=== PATIENT | male | born 1990 | race Caucasian/White ===

== ENCOUNTER 2017-07-27 16:18 | Observation (INO) | payer OTHER ==
[2017-07-27] MEDS ORDERED: Dextrose 5%-Lr IV Solution 1000 ML 1,000 ML IV SCH (16:30)
[2017-07-27] MEDS ORDERED: Sodium Chloride 0.9% 1000 ML 1,000 ML IV STA (16:36)
[2017-07-27 16:38] LABS: VBG BASE EXCESS -0.9 (-2.0-2.0); VBG CARBOXYHEMOGLOBIN 2.4 % T HGB (0.0-6.9); VBG HCO3- 24.9 meq/L (22-28); VBG HEMOGLOBIN 16.8; VBG O2 SATURATION 86.3 (95-100); VBG POTASSIUM 3.4 (3.5-5.1); VBG pH 7.36 (7.32-7.42)
--- NOTE | 2017-07-27 16:38 | XRAY ---
Indication: Overdose. Comparison: None Portable chest demonstrates normal heart, lungs, and bony thorax with multiple overlying monitoring leads.
--- NOTE | 2017-07-27 16:41 | ERPHSYRPT ---
- History of Present Illness Time Seen by Provider: 07/27/17 16:19 Source: patient, EMS (gave 2mg IV narcan [employer] with pt awakening) Physician History: CC: overdose Hx: 26 y/o patient released from detention today. He took 2 norco and 1 30mg oxycontin. He was found in the car blue. EMS was called and gave narcan 2mg IV and he awoke. He has been cooperative. No vomiting. No other complaints. He denies illness. Has been in detention over 2 weeks. Denies suicide ideation or thoughts of self harm. Timing/Duration: today Allergies/Adverse Reactions: No Known Drug Allergies Allergy (Unverified 03/20/16 22:04) Home Medications: No Home Meds [No Home Meds] 1 ea MC UD 03/20/16 [History] Hx Tetanus, Diphtheria Vaccination/Date Given: (unknown) Hx Influenza Vaccination/Date Given: No Hx Pneumococcal Vaccination/Date Given: No - Review of Systems Constitutional: No Fever, No Chills Eyes: No Symptoms Ears, Nose, & Throat: No Symptoms Respiratory: No Cough, No Dyspnea Cardiac: Syncope (passed out in car), No Chest Pain Abdominal/Gastrointestinal: No Abdominal Pain Skin: No Rash Neurological: No Focal Weakness, No Headache, No Parasthesia Psychological: No Suicidal Ideations All Other Systems: Reviewed and Negative - Past Medical History Pertinent Past Medical History: Yes Psycho-Social History: Bipolar, Depression - Past Surgical History Past Surgical History: Yes Musculoskeletal: Orthopedic Surgery Other Surgical History: rt hand surgery - Social History Smoking Status: Current some day smoker How long have you smoked: 4 yrs Exposure to second hand smoke: Yes Drug Use: marijuana Patient Lives Alone: Yes Significant Family History: no pertinent family hx - Nursing Vital Signs Nursing Vital Signs: Initial Vital Signs Temperature 98 F 07/27/17 16:22 Pulse Rate 122 H 07/27/17 16:22 Respiratory Rate 18 07/27/17 16:22 Blood Pressure 164/119 07/27/17 16:22 O2 Sat by Pulse Oximetry 100 07/27/17 16:22 Pain Scale Pain Intensity 0 - Physical Exam General Appearance: alert, other (cooperative) Ears, Nose, Throat Exam: normal ENT inspection, moist mucous membranes Neck Exam: normal inspection, non-tender, supple Respiratory Exam: normal breath sounds, lungs clear Cardiovascular Exam: regular rate/rhythm, tachycardia, No murmur Gastrointestinal/Abdomen Exam: soft, No tenderness, No distention Male Genitalia Exam: normal genitalia Back Exam: normal inspection, normal range of motion Extremity Exam: normal inspection, normal range of motion Neurologic Exam: alert, oriented x 3, cooperative, wire drawer II-XII nml as tested, sensation nml, No motor deficits Skin Exam: warm, dry, No rash SpO2 Interpretation: normal SpO2: 99 Oxygen Delivery: Room Air - Course Nursing assessment & vital signs reviewed: Yes EKG Interpreted by Me: RATE (123), Sinus Tach, NORMAL AXIS, NORMAL INTERVALS ( QTc 448), NORMAL QRS, NORMAL ST-T - Radiology Exams cxr X-ray Interpretation: Teleradiologist Report, Negative Ordered Tests: Active Orders 24 hr Category Date Time Status CO2 Monitoring STAT Care 07/27/17 16:20 Active Veterinary Technician STAT Care 07/27/17 16:19 Active Clean Catch Urine Specimen STAT Care 07/27/17 16:19 Active EKG-ER Only STAT Care 07/27/17 16:19 Active IV Insertion STAT Care 07/27/17 16:19 Active NPO (ED) STAT Care 07/27/17 16:19 Active Pulse Oximetry (ED) STAT Care 07/27/17 16:19 Active CHEST 1 VIEW (PORTABLE) Stat Exams 07/27/17 16:19 Completed ACETAMINOPHEN Stat Lab 07/27/17 16:32 Completed CBC W DIFF Stat Lab 07/27/17 16:32 Completed CMP Stat Lab 07/27/17 16:32 Completed ETHYL ALCOHOL Stat Lab 07/27/17 16:32 Completed Manual Differential NC Stat Lab 07/27/17 16:32 Completed SALICYLATE Stat Lab 07/27/17 16:32 Completed UA W/ MICROSCOPIC Stat Lab 07/27/17 17:10 Completed Urine Triage Profile Stat Lab 07/27/17 17:10 Completed VENOUS BLOOD GAS Stat Lab 07/27/17 16:30 Completed Medication Summary Generic Name Dose Route Start Last Admin Trade Name Freq PRN Reason Stop Dose Admin Dextrose/Lactated Ringer's 1,000 mls @ 100 mls/hr 07/27/17 16:30 Dextrose 5%-Lr Iv Solution 1000 Ml IV 08/26/17 16:29 .Q10H MARCOS Discontinued Medications Generic Name Dose Route Start Last Admin Trade Name Freq PRN Reason Stop Dose Admin Sodium Chloride 1,000 mls @ 999 mls/hr 07/27/17 16:36 07/27/17 16:45 Sodium Chloride 0.9% 1000 Ml IV 07/27/17 17:36 999 mls/hr .Q1H1M STA Administration Sodium Chloride Confirm 07/27/17 16:44 Sodium Chloride 0.9% 1000 Ml Administered 07/27/17 16:45 Dose 1,000 mls @ ud .ROUTE .STK-MED ONE Lab/Rad Data: Laboratory Result Diagrams 07/27/17 16:32 07/27/17 16:32 Laboratory Results 07/27/17 07/27/17 07/27/17 Range/Units 17:10 17:10 16:32 WBC (4.0-10.5) K/mm3 RBC (4.1-5.6) M/mm3 Hgb (12.5-18.0) gm/dl Hct (42-50) % MCV (78-100) fl MCH (26-32) pg MCHC (32-36) g/dl RDW (11.5-14.0) % Plt Count (150-450) K/mm3 MPV (6-9.5) fl VBG pH (7.32-7.42) VBG pCO2 at Pat Temp (42-55) mm/Hg VBG pO2 at Pat Temp (25-40) mm/Hg VBG HCO3 (22-28) meq/L VBG O2 Sat (Litzy) (95-100) VBG Base Excess (-2.0-2.0) VBG Hemoglobin VBG Carboxyhemoglobin (0.0-6.9) % T HGB POC Potassium (3.5-5.1) Sodium 138 (136-145) mEq/L Potassium 3.2 L (3.5-5.1) mEq/L Chloride 100 (98-107) mEq/L Carbon Dioxide 25.0 (21-32) mEq/L Anion Gap 16.3 H (5-15) MEQ/L BUN 6 L (9-20) mg/dL Creatinine 1.23 (0.55-1.30) mg/dl Estimated GFR > 60 ML/MIN Glucose 212 H (70-110) MG/DL Calcium 9.2 (8.5-10.1) mg/dL Total Bilirubin 0.60 (0.2-1.0) mg/dL AST 15 (15-37) U/L ALT 24 (12-78) U/L Alkaline Phosphatase 57 (46-116) U/L Serum Total Protein 8.2 (6.4-8.2) gm/dL Albumin 4.8 (3.4-5.0) g/dL Ur Collection Type CCMS Urine Color YELLOW (YELLOW) Urine Appearance CLEAR (CLEAR) Urine pH 6.0 (5-6) Ur Specific [place] 1.010 (1.005-1.025) Urine Protein TRACE (Negative) Urine Ketones NEGATIVE (NEGATIVE) Urine Blood NEGATIVE (0-5) Yayo/ul Urine Nitrite NEGATIVE (NEGATIVE) Urine Bilirubin NEGATIVE (NEGATIVE) Urine Urobilinogen NORMAL (0-1) mg/dL Ur Leukocyte Esterase NEGATIVE (NEGATIVE) Urine Microscopic WBC 0-2 (0-5) /HPF Urine Mucus SLIGHT (NEGATIVE) /HPF Urine Culture Reflexed NO (NO) Urine Glucose NEGATIVE (NEGATIVE) mg/dL Salicylates < 2.8 L (2.8-20.0) mg/dl Urine Opiates Level NEG. (NEGATIVE) Ur Methadone NEG. (NEGATIVE) Acetaminophen < 2.0 L (10-30) ug/ml Urine Barbiturates NEG. (NEGATIVE) Ur Phencyclidine (PCP) NEG. (NEGATIVE) Urine Amphetamine POS. (NEGATIVE) U Benzodiazepine Level NEG. (NEGATIVE) Urine Cocaine NEG. (NEGATIVE) Urine Marijuana (THC) NEG. (NEGATIVE) Ethyl Alcohol < 0.010 (0.00-0.01) % Specimen Received 07-27-17 [id number] 07/27/17 07/27/17 Range/Units 16:32 16:30 WBC 17.1 H (4.0-10.5) K/mm3 RBC 5.20 (4.1-5.6) M/mm3 Hgb 15.7 (12.5-18.0) gm/dl Hct 46.2 (42-50) % MCV 88.8 (78-100) fl MCH 30.2 (26-32) pg MCHC 34.0 (32-36) g/dl RDW 12.3 (11.5-14.0) % Plt Count 344 (150-450) K/mm3 MPV 10.1 H (6-9.5) fl VBG pH 7.36 (7.32-7.42) VBG pCO2 at Pat Temp 44 (42-55) mm/Hg VBG pO2 at Pat Temp 45 H (25-40) mm/Hg VBG HCO3 24.9 (22-28) meq/L VBG O2 Sat (Litzy) 86.3 L (95-100) VBG Base Excess -0.9 (-2.0-2.0) VBG Hemoglobin 16.8 VBG Carboxyhemoglobin 2.4 (0.0-6.9) % T HGB POC Potassium 3.4 L (3.5-5.1) Sodium (136-145) mEq/L Potassium (3.5-5.1) mEq/L Chloride (98-107) mEq/L Carbon Dioxide (21-32) mEq/L Anion Gap (5-15) MEQ/L BUN (9-20) mg/dL Creatinine (0.55-1.30) mg/dl Estimated GFR ML/MIN Glucose (70-110) MG/DL Calcium (8.5-10.1) mg/dL Total Bilirubin (0.2-1.0) mg/dL AST (15-37) U/L ALT (12-78) U/L Alkaline Phosphatase (46-116) U/L Serum Total Protein (6.4-8.2) gm/dL Albumin (3.4-5.0) g/dL Ur Collection Type Urine Color (YELLOW) Urine Appearance (CLEAR) Urine pH (5-6) Ur Specific [place] (1.005-1.025) Urine Protein (Negative) Urine Ketones (NEGATIVE) Urine Blood (0-5) Yayo/ul Urine Nitrite (NEGATIVE) Urine Bilirubin (NEGATIVE) Urine Urobilinogen (0-1) mg/dL Ur Leukocyte Esterase (NEGATIVE) Urine Microscopic WBC (0-5) /HPF Urine Mucus (NEGATIVE) /HPF Urine Culture Reflexed (NO) Urine Glucose (NEGATIVE) mg/dL Salicylates (2.8-20.0) mg/dl Urine Opiates Level (NEGATIVE) Ur Methadone (NEGATIVE) Acetaminophen (10-30) ug/ml Urine Barbiturates (NEGATIVE) Ur Phencyclidine (PCP) (NEGATIVE) Urine Amphetamine (NEGATIVE) U Benzodiazepine Level (NEGATIVE) Urine Cocaine (NEGATIVE) Urine Marijuana (THC) (NEGATIVE) Ethyl Alcohol (0.00-0.01) % Specimen Received - Progress Progress Note: 07/27/17 17:54 Pt stable but tachycardia persists. UDS positive for amph. He snorted the opioids. He agrees for observation. Called Dr Grant (oc) who will place in obs. Discussed with : Rudy Will see patient in: hospital (observation) Counseled pt/family regarding: lab results, diagnosis, need for follow-up - Departure Time of Disposition: 17:56 Departure Disposition: Observation (ICU Dr Grant (oc)) Clinical Impression: Polysubstance overdose Condition: Fair Critical Care Time: No Referrals: DOCTOR,NO FAMILY [Primary Care Provider] -
[2017-07-27] MEDS ORDERED: Sodium Chloride 0.9% 1000 ML 1,000 ML ONE (16:44)
[2017-07-27 17:24] LABS: Hematocrit 46.2 % (42-50); Hemoglobin 15.7 gm/dl (12.5-18.0); Mean Cell Volume 88.8 fl (78-100); Mean Corpuscular Hemoglobin 30.2 pg (26-32); Mean Platelet Volume 10.1 fl (6-9.5); Platelet Count 344 K/mm3 (150-450); Red Cell Distribution Width 12.3 % (11.5-14.0); White Blood Count 17.1 K/mm3 (4.0-10.5)
[2017-07-27 17:31] LABS: Appearance CLEAR (CLEAR); Bilirubin NEGATIVE (NEGATIVE); Blood NEGATIVE Ery/ul (0-5); Glucose NEGATIVE (NEGATIVE); Ketones NEGATIVE (NEGATIVE); Leukocyte Esterase NEGATIVE (NEGATIVE); Nitrite NEGATIVE (NEGATIVE); Protein,Urine Dip TRACE (Negative); Urobilinogen NORMAL mg/dL (0-1)
[2017-07-27 17:33] LABS: Mucus SLIGHT /HPF (NEGATIVE); WBC 0-2 /HPF (0-5)
[2017-07-27 17:40] LABS: Amphetamine,Urine POS. (NEGATIVE); Barbiturate,Urine NEG. (NEGATIVE); Benzodiazepine,Urine NEG. (NEGATIVE); Cocaine,Urine NEG. (NEGATIVE); Methadone,Urine NEG. (NEGATIVE); Opiate,Urine NEG. (NEGATIVE); PCP,Urine NEG. (NEGATIVE); THC,Urine NEG. (NEGATIVE)
[2017-07-27 17:40] LABS: ALBUMIN 4.8 g/dL (3.4-5.0); ALKALINE PHOSPHATASE 57 U/L (46-116); ANION GAP 16.3 MEQ/L (5-15); BLOOD UREA NITROGEN 6 mg/dL (9-20); CHLORIDE 100 mEq/L (98-107); Calcium 9.2 mg/dL (8.5-10.1); Creatinine 1 1.23 mg/dl (0.55-1.30); EST GLOMERULAR FILTRATION RATE > 60 ML/MIN; Glucose 212 MG/DL (70-110); Potassium 3.2 mEq/L (3.5-5.1); SALICYLATE < 2.8 mg/dl (2.8-20.0); SGOT/AST 15 U/L (15-37); SGPT/ALT 24 U/L (12-78); SODIUM 138 mEq/L (136-145); Total Protein 8.2 gm/dL (6.4-8.2)
[2017-07-27 17:41] LABS: ACETAMINOPHEN < 2.0 ug/ml (10-30)
[2017-07-27 17:42] LABS: ETHYL ALCOHOL < 0.010 % (0.00-0.01)
[2017-07-27 17:53] LABS: Lymphocytes 13 % (24-44); Monocyte 4 % (0.0-12.0); Neutrophils 83 % (36.-66.); Total Cells Counted 100
[2017-07-27 17:57] LABS: Platelet Estimate NORMAL (NORMAL)
[2017-07-27] MEDS: Dextrose 5%-Lr IV Solution 1000 ML 1,000 ML IV SCH (18:39)
[2017-07-27] MEDS ORDERED: Klor Con 10 MEQ PO ONE (20:27)
[2017-07-27 20:42] LABS: VBG BASE EXCESS 2.4 (-2.0-2.0); VBG CARBOXYHEMOGLOBIN 2.9 % T HGB (0.0-6.9); VBG HCO3- 27.9 meq/L (22-28); VBG HEMOGLOBIN 15.3; VBG O2 SATURATION 76.7 (95-100); VBG POTASSIUM 3.5 (3.5-5.1); VBG pH 7.4 (7.32-7.42)
[2017-07-28] MEDS: Dextrose 5%-Lr IV Solution 1000 ML 1,000 ML IV SCH (04:03)
[2017-07-28 05:51] LABS: BASOPHIL % 0.4 % (0.0-0.4); Basophil (Absolute #) 0.04 (0-0.4); Eosinophil % 1.4 % (0.00-5.0); Eosinophil (Absolute #) 0.15 (0-0.5); Granulocyte Absolute (ANC) 6.56 (1.4-6.9); Granulocytes % 60.5 % (36.0-66.0); Hematocrit 41.5 % (42-50); Hemoglobin 13.7 gm/dl (12.5-18.0); Lymphocyte (Absolute #) 2.96 (1.0-4.6); Lymphocytes % 27.4 % (24.0-44.0); Mean Cell Volume 91.4 fl (78-100); Mean Corpuscular Hemoglobin 30.2 pg (26-32); Mean Platelet Volume 10.2 fl (6-9.5); Monocyte (Absolute #) 1.11 (0.0-1.3); Monocytes % 10.3 % (0.0-12.0); Platelet Count 266 K/mm3 (150-450); Red Blood Count 4.54 M/mm3 (4.1-5.6); Red Cell Distribution Width 12.3 % (11.5-14.0); White Blood Count 10.8 K/mm3 (4.0-10.5)
[2017-07-28 06:17] LABS: ANION GAP 9.1 MEQ/L (5-15); BLOOD UREA NITROGEN 5 mg/dL (9-20); CHLORIDE 106 mEq/L (98-107); Calcium 8.7 mg/dL (8.5-10.1); Carbon Dioxide 30.1 mEq/L (21-32); Creatinine 1 0.97 mg/dl (0.55-1.30); EST GLOMERULAR FILTRATION RATE > 60 ML/MIN; Glucose 92 MG/DL (70-110); Potassium 4.8 mEq/L (3.5-5.1); SODIUM 140 mEq/L (136-145)
[2017-07-28 08:42] VITALS: BP 122/95; PULSE 75; O2SAT 100
--- NOTE | 2017-07-28 08:42 | PCM.DCORD ---
- Discharge Discharge Date: 07/28/17 Disposition: Home, Self-Care Condition: Fair Prescriptions: No Action No Home Meds [No Home Meds] 1 mick STILL UD Follow up with: GABRIELLE GALARZA [ACTIVE STAFF] - 1 Week
--- NOTE | 2017-07-28 15:12 | SSS ---
HISTORY OF PRESENT ILLNESS: This is a 26 year-old patient without family physician who was brought to the emergency department by EMS. This morning his girlfriend, Julia, is at the bedside. She reports that he was in the car with her at the [address] and took a 30 mg oxycodone and 2 [place]. She said she noticed that his face was white and his lips were blue and he was not coherent so she called 911. When asked she reported his arms and legs were shaky for 30 seconds after his lips started looking blue. He does not have a history of seizure problems. He remembers waking up in the ambulance. He denies any problems overnight. He reports that he was not trying to hurt himself. He reports that he had had problems with drugs in the past but was able to get clean in the past on his own. He reports that he plans to quit using drugs. The emergency room doctor reports that the EMS gave him 2 mg Narcan IV and he woke after getting this. REVIEW OF SYSTEMS: He denies chest pain. No dyspnea. No abdominal pain. No fever. No rashes. No headache. PAST MEDICAL HISTORY: Illicit drug use. PAST SURGICAL HISTORY: Right hand surgery after his hand was shattered when it was shut in a tailgate. SOCIAL HISTORY: He lives with his sister, sister's and their kids. He reports he quit drinking alcohol. The emergency room reports that he was recently released from alf. He denies smoking but does have chew in a bottle next to him. He denies meth or THC. He is currently unemployed. FAMILY HISTORY: His mother is living and no problems. His father is and had history of heart and lung problems but the patient is not sure about the specifics PHYSICAL EXAMINATION: VITAL SIGNS: Temperature current 98.1F, temperature max 98.1F, heart rate 75 to 122 currently 84, respiratory rate 12 to 19 currently 18, blood pressure 136 to 164 over 63 to 119 currently 131/63. Oxygen saturation 97 to 100% on room air. GENERAL: The patient is sitting in bed, alert, talkative and in no acute distress. His girlfriend, Julia, is at the bedside. HEENT: Mouth - He has poor dentition. No erythema. He has his tonsils. Pupils equal, round and reactive to light. CVS: Heart has a regular rate and rhythm. No murmurs, gallops or rubs are appreciated. CHEST: Clear to auscultation bilaterally. No crackles or wheezes. ABDOMEN: Soft, nontender, nondistended with normal bowel sounds. EXTREMITIES: No clubbing, cyanosis or edema. SKIN: Warm, dry and intact with tattoos. LABORATORY DATA AND TESTS: His white blood cell count on admission was 17,1000 and repeat was 10,800 this morning. Potassium was 3.2 on admission, 4.8 today. Glucose 212 on admission and 92 today. UA was negative. Urine tox was positive for amphetamines. Acetaminophen level was less than 2 and repeat after 2 hours was less than 2. Salicylate less than 2.8. Ethanol alcohol less than 0.010. Chest x-ray was read as normal with multiple overlying monitoring leads. ASSESSMENT AND PLAN: 1) POLYSUBSTANCE OVERDOSE: The patient denies suicidal ideation. He was offered consultation with [facility] but declined. The patient states that he wants to quit using illicit drugs and prescription drugs that are not his own. The patient was given names and phone numbers for physicians authorized to treat opioid dependency with bupropion in [place]. The patient was encouraged by myself that it does help for treatment and we do not want something bad to happen to him but we are available if he needs us. 2) HYPOKALEMIA: This resolved with potassium and IV fluids overnight. DISPOSITION: The patient was discharged to home in fair condition. FOLLOW UP: He may follow up with myself in one week if he describes and he was given the names and phone numbers of prescribers that treat opioid dependency in [place].
== END 2017-07-28 09:20 | disposition home or self-care (01) ==
LOC: ED 16:18 → ICU 18:17
PROVIDERS: ADMIT Internal Medicine; ATTEND Internal Medicine
DX: F19.10 Other psychoactive substance abuse, uncomplicated (principal); G40.909 Epilepsy, unspecified, not intractable, without status epilepticus
CPT/HCPCS: 36000; 36415; 71045; 80048; 80053; 80307; 81000; 82805; 85025; 93005; 93041; 93268; 94770; 96360; 99285; G0378; G0480; G0481; A9270-GY